=== PATIENT | female | born 1975 | race Caucasian/White ===

== ENCOUNTER 2022-02-06 16:52 | Emergency (ER) | payer MEDICAID, SELFPAY ==
[2022-02-06 16:53] VITALS: BP 207/119; PULSE 70; RESP 18; TEMP 36.1; O2SAT 99; BMI 45.3
--- NOTE | 2022-02-06 17:07 | CT_ITS ---
STUDY: CT ABDOMEN AND PELVIS WITHOUT CONTRAST REASON FOR EXAM: Female, 46 years old. LEFT LOWER QUADRANT PAIN SUDDEN ONSET AND POSSIBLE HEMATURIA RADIATION DOSAGE (If Supplied By Facility): CTDIvol = ( 22.05 ) mGy, DLP = ( 1206.50 ) mGycm TECHNIQUE: Transaxial images were obtained from the dome of the diaphragm to the symphysis pubis without oral contrast, and without intravenous contrast. Sagittal and coronal images were reconstructed. Individualized dose optimization techniques were used for this CT. COMPARISON: None. FINDINGS: The visualized lung bases are unremarkable. The visualized portions of the heart are within normal limits. Normal liver. There are surgical clips in the gallbladder fossa consistent with a prior cholecystectomy. Normal spleen. Normal pancreas. Normal bilateral adrenal glands. Normal right kidney. Mild left renal hydronephrosis and ureteral dilatation is present. There is a probable punctate distal nephrolith measuring approximately 1 mm within the distal ureter. Normal visualized stomach. Normal small intestine. Normal colon. The appendix is visualized and appears normal. Normal abdominal aorta. Normal inferior vena cava. Normal retroperitoneum. Normal urinary bladder. Normal abdominal wall. Normal osseous structures. CT/Abdomen/Pelvis without Cont IMPRESSION: Findings consistent with left distal ureter possibly 1 mm stone with mild obstructive nephropathy. Otherwise no additional acute intra-abdominal process. Electronically Signed: Brian Arias DO at 17:48 EDT ,
[2022-02-06] MEDS: Ketorolac 15 MG/ML Vial IV (17:14)
[2022-02-06] MEDS: Ondansetron 4 MG/2 ML Vial IV (17:14)
[2022-02-06] MEDS: Morphine 4 MG/ML Syringe IV (17:14)
[2022-02-06] MEDS: 0.9% Normal Saline 1,000 ML 1000 ML IV (17:14)
--- NOTE | 2022-02-06 17:21 | EX.ED.DYSGE1 ---
HPI History of Present Illness Chief Complaint: Abd Pain Informant: patient Narrative Narrative: Patient presents with left flank/lower quadrant pain. This was relatively sudden onset while driving. She had urinated shortly before that but did not notice any abnormality urinating. The pain is mostly just on the lateral aspect of the abdomen and the left lower quadrant. She states occasionally it shoots toward the left groin. It does not go in the back. She has never had kidney stones but she does have a history in her family including her brother. She felt perfectly fine before this. She did have episode of vomiting when the pain was bad. No fevers or chills. No trauma. No numbness tingling weakness. She was not syncopal or near syncopal. No chest pain. No tearing or ripping pain. Pain was never in her back. PFSH PFSH Home Medications ondansetron 4 mg disintegrating tablet 4 mg PO Q8H PRN nausea and vomiting #10 tabs 02/06/22 [Rx Last Taken Unknown] oxycodone-acetaminophen 5 mg-325 mg tablet (Percocet) 1 tab PO Q6H PRN pain 3 days #10 tabs 02/06/22 [Rx Last Taken Unknown] tamsulosin 0.4 mg capsule (Flomax) 0.4 mg PO DAILY #7 caps 02/06/22 [Rx Last Taken Unknown] Allergy/AdvReac Type Severity Reaction Status Date / Time Penicillins Allergy Hives Verified 02/06/22 16:55 Social History Smoking Status: Never smoker ROS ROS ED Constitutional Constitutional ED: Denies chills or fever(s) ENT ENT ED: Denies rhinorrhea Cardiovascular Cardiovascular: Denies chest pain or palpitations Respiratory/Chest Respiratory/Chest: Denies cough or dyspnea Gastrointestinal Gastrointestinal: Reports abdominal pain, nausea and vomiting; Denies constipation, diarrhea or melena Genitourinary Genitourinary ED: Denies dysuria or hematuria Musculoskeletal Musculoskeletal: Denies back pain or neck pain Integumentary Denies rash Neurologic Neurologic: Denies headache(s), paresthesias or weakness Endocrine Endocrinology: Denies polydipsia or polyuria Hematologic/Lymphatic Hematologic/Lymphatic: Denies easy bleeding or easy bruising Allergic/Immunologic Allergic/Immunologic ED: Denies urticaria EXAM Physical Exam Const Vital Signs: 02/06/22 16:53 02/06/22 19:16 Temperature 97.0 F L Temperature Source Temporal Pulse Rate 70 Respiratory Rate 18 16 Blood Pressure 207/119 H Blood Pressure Mean 148 Pulse Ox 99 Oxygen Delivery Method Room Air Positive well nourished and well developed Constitutional Narrative: Patient is having trouble sitting still on the bed. She looks uncomfortable. She is not diaphoretic. She is not pale. General Appearance ED: well developed HEENT Reports moist mucous membranes Eyes EOMs intact bilaterally Neck no JVD Resp normal respiratory effort and clear to auscultation bilaterally Cardio regular rate and regular rhythm GI normal to inspection, nondistended, normoactive bowel sounds, non-tender and non-distended GI Narrative: Patient states she feels a little pressure when I press in the left lower quadrant but it mostly hurts badly without pressing. Pressing does not change it significantly. There is no rebound or guarding. I feel no mass. There is no CVA tenderness. Back/Spine no CVA tenderness Extremity normal to inspection General Extremety ED: Negative for edema or tenderness General Extremity: Negative for edema Neuro oriented x3 Psych mental status grossly normal Skin no rashes or lesions noted MDM MDM MDM Narrative Medical decision making narrative: CBC is overall normal other than minimal anemia. Platelets are normal. Electrolytes show no marked abnormalities. is negative. Glucose is minimally up at 135. This can be rechecked. Urine shows red cells but no sign of infection. There is some hydronephrosis on the left and suspicion of a 1 mm distal UVJ stone. Patient's recheck. She is doing much better. We will get her home. I explained this is kidney stone. We discussed reasons for return and follow-up. Lab Data Attestation: I reviewed the patient's lab results. Labs: Laboratory Results - last 24 hr 02/06/22 02/06/22 02/06/22 17:09 17:09 17:09 WBC 8.6 RBC 4.64 Hgb 11.7 L Hct 38.1 MCV 82.1 MCH 25.2 L MCHC 30.7 L RDW Std Deviation 40.3 RDW Coeff of Jannet 13.6 Plt Count 381 MPV 10.1 Immature Gran % (Auto) 0.300 Neut % (Auto) 73.4 H Lymph % (Auto) 18.7 L [place] % (Auto) 6.2 Eos % (Auto) 1.2 Baso % (Auto) 0.2 Absolute Neuts (auto) 6.3 Absolute Lymphs (auto) 1.61 Nucleated RBC % 0 Sodium 138 Potassium 3.8 Chloride 107 Carbon Dioxide 22.0 Anion Gap 9 BUN 19 H Creatinine 0.87 Estim Creat Clear Calc 60.32 Est GFR (MDRD) Af Amer 90 Est GFR (MDRD) Non-Af 74 BUN/Creatinine Ratio 21.9 H Glucose 135 H Calcium 8.6 Serum , Qual NEGATIVE Urine Color Urine Clarity Urine pH Ur Specific Gowen Urine Protein Urine Glucose (UA) Urine Ketones Urine Occult Blood Urine Nitrite Urine Bilirubin Urine Urobilinogen Ur Leukocyte Esterase Urine RBC Urine WBC Ur Squamous Epith Cells Calcium Oxalate Crystal Amorphous Sediment Urine Bacteria Urine Mucus 02/06/22 18:15 WBC RBC Hgb Hct MCV MCH MCHC RDW Std Deviation RDW Coeff of Jannet Plt Count MPV Immature Gran % (Auto) Neut % (Auto) Lymph % (Auto) [place] % (Auto) Eos % (Auto) Baso % (Auto) Absolute Neuts (auto) Absolute Lymphs (auto) Nucleated RBC % Sodium Potassium Chloride Carbon Dioxide Anion Gap BUN Creatinine Estim Creat Clear Calc Est GFR (MDRD) Af Amer Est GFR (MDRD) Non-Af BUN/Creatinine Ratio Glucose Calcium Serum , Qual Urine Color Yellow Urine Clarity Cloudy Urine pH 5.0 Ur Specific [place]ow[place] 1.030 Urine Protein 30 H Urine Glucose (UA) Normal Urine Ketones 5 H Urine Occult Blood 250 H Urine Nitrite Negative Urine Bilirubin 1 H Urine Urobilinogen 1 H Ur Leukocyte Esterase 25 H Urine RBC 25-50 SEEN Urine WBC 0 SEEN Ur Squamous Epith Cells 0-5 SEEN Calcium Oxalate Crystal 2+ Amorphous Sediment 2+ Urine Bacteria 1+ Urine Mucus 0 SEEN Radiography Diagnostic Testing: Clinical Impression(s) from Imaging Studies Abdomen/Pelvis CT 02/06/22 17:07 IMPRESSION: Findings consistent with left distal ureter possibly 1 mm stone with mild obstructive nephropathy. Otherwise no additional acute intra-abdominal process. Electronically Signed: Brian Arias DO at 17:48 EDT , Discharge Plan Triage Chief Complaint: Abd Pain ED Provider: Yeison Vu Dx/Rx/DC Orders Clinical Impression: Kidney stone on left side, Renal colic on left side Instructions: ED Kidney Stone w/ Colic Prescriptions: New oxycodone-acetaminophen [Percocet] 5-325 mg tablet 1 tab PO Q6H PRN (Reason: pain) 3 Days Qty: 10 0RF ondansetron 4 mg tablet,disintegrating 4 mg PO Q8H PRN (Reason: nausea and vomiting) Qty: 10 0RF tamsulosin [Flomax] 0.4 mg capsule 0.4 mg PO DAILY Qty: 7 0RF Primary Care Provider: Susan Cordova NP Referrals: Quin Arevalo MD [STAFF PHYSICIAN] - 3-5 Days Susan Cordova NP, REAL ESTATE ADMINISTRATIVE ASSISTANT-C [Primary Care Provider] - Disposition Disposition: Home, Self Care
[2022-02-06 17:32] LABS: Absolute Lymphocyte Count 1.61 X10^3/uL (0.83-4.51); Absolute Neutrophil Count 6.3 X10^3/uL (2.0-7.7); Basophil# 0.02 X10^3/uL; Basophil% 0.2 % (0-1); Eosinophils% 1.2 % (0-5); Hematocrit 38.1 % (37-47); Hemoglobin 11.7 g/dL (12.0-15.0); Lymphocyte # 1.61 X10^3/ul (0.83-4.51); Lymphocyte % 18.7 % (19-41); Mean Corp Hgb Conc 30.7 g/dL (32-36); Mean Corpuscular Hgb 25.2 pg (27.0-32.0); Mean Corpuscular Volume 82.1 fL (81-99); Mean Platelet Vol. 10.1 fl (6.2-12.0); Monocyte# 0.53 X10^3/uL; Monocyte% 6.2 % (0-10); NRBC Flagged by Analyzer 0 % (0-5); Neutrophil # 6.31 X10^3/uL (2.7-7.7); Neutrophil % 73.4 % (47-70); Platelet Count 381 K/mm3 (150-450); RBC Distribution Width CV 13.6 % (11.6-14.6); RBC Distribution Width SD 40.3 fl (35.1-43.9); Red Blood Count 4.64 M/mm3 (4.2-5.4); White Blood Count 8.6 K/mm3 (4.4-11.0)
[2022-02-06 17:46] LABS: Internal QC Validated? YES +Cl - CLEAR BKGD; Pregnancy, Serum, hCG Quali. NEGATIVE Negative
[2022-02-06 17:50] LABS: Anion Gap 9 (5-15); BUN 19 mg/dL (7-18); BUN/Creat Ratio 21.9 RATIO (10-20); Calcium,Total 8.6 mg/dL (8.5-10.1); Chloride 107 mmol/L (98-107); Creatinine, Serum 0.87 mg/dL (0.55-1.02); EST Glomerular Filtration Rate 74 mL/min (>60); Est Glom Filt Rate - Afr Amer 90 mL/min (>60); Estimated Creatinine Clearance 60.32 ml/min; Glucose 135 mg/dL (74-106); Potassium 3.8 mmol/L (3.5-5.1); Sodium Level 138 mmol/L (136-145)
[2022-02-06 18:23] LABS: Mucous, Urine 0 SEEN /hpf (<or=2+); White Blood Cells 0 SEEN /hpf (0-5)
[2022-02-06 18:26] LABS: Color, Urine Yellow (Yellow); Glucose, Dipstick Normal (Normal); Ketone-Dipstick 5 mg/dl (Negative); Leukocyte Esterase-Dipstick 25 /ul (Negative); Nitrite-Dipstick Negative (Negative); Occult Blood-Urine 250 /ul (Negative); Protein-Dipstick 30 mg/dl (Negative); Urine Clarity Cloudy (Clear); Urine Urobilinogen 1 mg/dl (Normal)
[2022-02-06 18:33] LABS: Urine Bilirubin Dipstick 1 mg/dL (Negative)
[2022-02-06 18:40] LABS: Amorphous Sediment 2+; Bacteria 1+ /hpf (None Seen); Calcium Oxalate Crystals Ur 2+ /hpf (<or=2+); Red Blood Cells-Urine 25-50 SEEN /hpf (0-5); Squamous Epithelial Cells - UA 0-5 SEEN /hpf (5-10)
[2022-02-06 19:16] VITALS: RESP 16
[2022-02-06 20:20] VITALS: PULSE 87; RESP 18; O2SAT 96
== END 2022-02-06 20:21 | disposition home or self-care (01) ==
PROVIDERS: Emergency Provider Emergency Medicine; PCP Nurse Practitioner Family; Visit Provider Emergency Medicine
DX: N13.2 Hydronephrosis with renal and ureteral calculous obstruction (principal); N23 Unspecified renal colic
CPT/HCPCS: 74176; 80048; 81001; 84703; 85025; 96361; 96374; 96375; 99282; J7030; A4216; J2405